=== PATIENT | male | born 1990 | race Caucasian/White ===

== ENCOUNTER 2016-11-01 19:08 | Emergency (ER) | payer OTHER ==
[~2016-11-01] VITALS: Ht 190.5 cm; Wt 71.9 kg
[2016-11-01] MEDS ORDERED: NORCO, ANEXSIA 5/325MG TABLET (HYDROcodone/ACETAMINOPHEN) PO ONE (20:15)
[2016-11-01 21:03] VITALS: BP 108/56
[2016-11-01] MEDS ORDERED: NORCO 5/325MG TABLET (BULK FOR ED) PO ONE (21:15)
--- NOTE | 2016-11-02 14:17 | REP ---
RIGHT HAND: Four views right hand performed. There is no acute fracture or dislocation. No intrinsic osseous pathology is seen. Possible old fracture is noted of the second metacarpal. IMPRESSION: No acute fracture or dislocation. Signed by Hal Gipson MD 11/02/2016 03:22 P
== END 2016-11-01 21:25 | disposition home or self-care (01) ==
LOC: M ED 19:08
DX: S60.211A Contusion of right wrist, initial encounter (principal); W23.1XXA Caught, crushed, jammed, or pinched between stationary objects, initial encounter; W01.0XXA Fall on same level from slipping, tripping and stumbling without subsequent striking against object, initial encounter; Y92.019 Unspecified place in single-family (private) house as the place of occurrence of the external cause; Y93.K1 Activity, walking an animal; Y99.8 Other external cause status; Z88.8 Allergy status to other drugs, medicaments and biological substances

== ENCOUNTER → 2017-11-28 | Outpatient (CLI) | payer OTHER | LOC: M OUTALCOH 07:57 | DX: F11.20 Opioid dependence, uncomplicated (principal); F14.20 Cocaine dependence, uncomplicated ==

== ENCOUNTER 2017-12-17 15:13 | Outpatient (RCR) | payer OTHER | END 2018-01-11 | LOC: M OUTALCOH 15:13 | DX: F14.20 Cocaine dependence, uncomplicated (principal); F11.20 Opioid dependence, uncomplicated ==

== ENCOUNTER 2018-01-14 15:00 | Outpatient (RCR) | payer OTHER | END 2018-02-11 | LOC: M OUTALCOH 01-21 15:00 | DX: F14.20 Cocaine dependence, uncomplicated (principal); F11.20 Opioid dependence, uncomplicated ==

== ENCOUNTER → 2018-04-01 | Outpatient (CLI) | payer OTHER ==
[2018-04-01 14:20] LABS: BASO % 0.4 % (0.0-1.0); EOS # 0.1 10^3/uL (0.0-0.50); HEMATOCRIT 46.8 % (42.0-52.0); HEMOGLOBIN 15.7 g/dl (13.5-17.5); LYMPH # 1.6 10^3/uL (1.5-6.5); LYMPH % 19.4 % (24.0-44.0); MEAN CORPUSCULAR HEMOGLOBIN 30.8 pg (27.0-33.0); MEAN CORPUSCULAR HGB CONC 33.5 g/dl (32.0-36.5); MEAN CORPUSCULAR VOLUME 91.8 fl (80.0-96.0); MONO # 0.6 10^3/uL (0.0-0.8); MONO % 7.3 % (0.0-5.0); NEUTROPHILS % 71.7 % (36.0-66.0); PLATELET COUNT, AUTOMATED 214 10^3/uL (150-450); WHITE BLOOD COUNT 8.4 10^3/uL (4.0-10.0)
[2018-04-01 14:39] LABS: ALBUMIN 4.6 GM/DL (3.2-5.2); ALT/SGPT 18 U/L (12-78); BILIRUBIN,TOTAL 0.5 MG/DL (0.2-1.0); BLOOD UREA NITROGEN 11 MG/DL (7-18); CALCIUM LEVEL 9.4 MG/DL (8.5-10.1); CARBON DIOXIDE LEVEL 29 MEQ/L (21-32); CHLORIDE LEVEL 102 MEQ/L (98-107); CREATININE FOR GFR 0.85 MG/DL (0.70-1.30); GLOMERULAR FILTRATION RATE > 60.0 (>60); GLUCOSE, FASTING 78 MG/DL (70-100); POTASSIUM SERUM 3.9 MEQ/L (3.5-5.1); SODIUM LEVEL 138 MEQ/L (136-145); TOTAL PROTEIN 8.2 GM/DL (6.4-8.2)
[2018-04-03 10:04] LABS: HEPATITIS B SURFACE ANTIBODY NEGATIVE (POSITIVE)
[2018-04-03 10:14] LABS: HEPATITIS B SURFACE ANTIGEN NEGATIVE (NEGATIVE)
== END ==
LOC: M LAB 13:15
PROVIDERS: ATTEND Physician Assistant Medical
DX: Z02.2 Encounter for examination for admission to residential institution (principal); B15.9 Hepatitis A without hepatic coma; B18.2 Chronic viral hepatitis C; B16.9 Acute hepatitis B without delta-agent and without hepatic coma

== ENCOUNTER → 2018-04-02 | Outpatient (REF) | payer OTHER ==
[2018-04-02 10:46] LABS: APPEARANCE, URINE CLEAR (CLEAR); BACTERIA, URINE AUTO NEGATIVE (NEGATIVE); BILIRUBIN, URINE AUTO NEGATIVE (NEGATIVE); BLOOD, URINE BLOOD NEGATIVE (NEGATIVE); COLOR, URINE YELLOW (YELLOW); GLUCOSE, URINE (UA) AUTO NEGATIVE (NEGATIVE); KETONE, URINE AUTO NEGATIVE (NEGATIVE); LEUKOCYTE ESTERASE, URINE AUTO TRACE (NEGATIVE); MUCUS, URINE SMALL (NEGATIVE); NITRITE, URINE AUTO NEGATIVE (NEGATIVE); PROTEIN, URINE AUTO NEGATIVE (NEGATIVE); RBC, URINE AUTO 1 /HPF (0-3); SPECIFIC GRAVITY URINE AUTO 1.009 (1.002-1.035); SQUAMOUS EPITHELIAL CELL UR AU 0 /HPF (0-6); UROBILINOGEN, URINE AUTO 0.2 mg/dL (0.0-2.0); WBC, URINE AUTO 10 /HPF (0-3)
[2018-04-13 14:11] LABS: HEPATITIS A IgG TOTAL Negative (Negative); HEPATITIS C QUANTITATION HCV Not Detected IU/mL (.)
== END ==
LOC: M LAB REF 09:51
PROVIDERS: ATTEND Physician Assistant Medical
DX: Z02.2 Encounter for examination for admission to residential institution (principal); B18.2 Chronic viral hepatitis C; B16.9 Acute hepatitis B without delta-agent and without hepatic coma; B15.9 Hepatitis A without hepatic coma

== ENCOUNTER 2018-04-21 18:26 | Emergency (ER) | payer OTHER ==
[~2018-04-21] VITALS: Ht 193 cm; Wt 79.7 kg
--- NOTE | 2018-04-21 19:36 | REP ---
Chest two views HISTORY: Chest pain Comparison: None The lungs are clear. The heart is normal in size. The pulmonary vasculature is normal in appearance. The bony structure is intact. IMPRESSION: No acute disease. Electronically Signed by Reinier Dupont MD 04/21/2018 07:27 P
[2018-04-21] MEDS ORDERED: KETOROLAC TROMETHAMINE 10 MG TAB PO ONE (19:45)
[2018-04-21 20:09] LABS: BASO # 0.1 10^3/uL (0.0-0.2); BASO % 0.7 % (0.0-1.0); EOS # 0.2 10^3/uL (0.0-0.50); EOS % 1.5 % (0.0-3.0); HEMATOCRIT 47.1 % (42.0-52.0); HEMOGLOBIN 16.2 g/dl (13.5-17.5); LYMPH # 2.5 10^3/uL (1.5-6.5); LYMPH % 21.2 % (24.0-44.0); MEAN CORPUSCULAR HGB CONC 34.4 g/dl (32.0-36.5); MEAN CORPUSCULAR VOLUME 90.1 fl (80.0-96.0); MONO # 0.8 10^3/uL (0.0-0.8); MONO % 7.2 % (0.0-5.0); NEUTROPHILS % 69.1 % (36.0-66.0); PLATELET COUNT, AUTOMATED 232 10^3/uL (150-450); RED BLOOD COUNT 5.23 10^6/uL (4.30-6.10); WHITE BLOOD COUNT 11.7 10^3/uL (4.0-10.0)
[2018-04-21 20:20] LABS: INR 0.97; PROTHROMBIN TIME 12.9 SECONDS (12.1-14.4)
[2018-04-21 20:21] LABS: PARTIAL THROMBOPLASTIN TIME 30.4 SECONDS (25.4-37.6)
[2018-04-21 20:24] LABS: ALBUMIN 4.8 GM/DL (3.2-5.2); ALT/SGPT 15 U/L (12-78); BILIRUBIN,DIRECT 0.1 MG/DL (0.0-0.2); BILIRUBIN,TOTAL 0.5 MG/DL (0.2-1.0); BLOOD UREA NITROGEN 14 MG/DL (7-18); C REACTIVE PROTEIN QUANTITATIV < 0.30 MG/DL (0.00-0.30); CALCIUM LEVEL 9.5 MG/DL (8.5-10.1); CARBON DIOXIDE LEVEL 28 MEQ/L (21-32); CHLORIDE LEVEL 102 MEQ/L (98-107); CK-MB VALUE MASS < 1.0 NG/ML (<3.6); CPK CREATINE PHOSPHOKINASE 100 U/L (39-308); D-DIMER QUANT 411.4 ng/ml (<500); GLOMERULAR FILTRATION RATE > 60.0 (>60); GLUCOSE, FASTING 81 MG/DL (70-100); POTASSIUM SERUM 4.2 MEQ/L (3.5-5.1); SODIUM LEVEL 135 MEQ/L (136-145); TOTAL PROTEIN 8.5 GM/DL (6.4-8.2); TROPONIN I < 0.02 NG/ML (< 0.10)
[2018-04-21] MEDS ORDERED: KETO10TAB PO (20:56)
[2018-04-21] MEDS ORDERED: CYCL10TA PO (20:56)
[2018-04-21 21:00] VITALS: BP 123/79
[2018-04-21] MEDS ORDERED: CYCLOBENZAPRINE 10 MG TAB PO ONE (21:00)
[2018-04-21 23:28] LABS: ERYTHROCYTE SEDIMENTATION RATE 2 mm/hr (0-15)
--- NOTE | 2018-04-22 13:24 | ECGEPIP ---
Stationary ECG Study [facility] - ED Test Date: 2018-04-21 Pat Name: SJ JARAMILLO Department: Room: - Gender: M [employer]er: : 1990 Requested By: MARIO GARCIA PA-C Order Number: [id number] Reading MD: Heladio Murguia Measurements Intervals [place] Rate: 71 P: 10 [place]: 133 QRS: 56 QRSD: 109 T: 95 QT: 355 QTc: 388 Interpretive Statements SINUS RHYTHM BENIGN EARLY REPOLARIZATION NO PRIORS FOR COMPARISON Electronically Signed On 04-22-2018 13:24:31 EST by Heladio Murguia
== END 2018-04-21 21:05 | disposition home or self-care (01) ==
LOC: M ED 18:26
DX: M94.0 Chondrocostal junction syndrome [Tietze] (principal); Z88.1 Allergy status to other antibiotic agents; F17.210 Nicotine dependence, cigarettes, uncomplicated

== ENCOUNTER → 2020-08-17 | Outpatient (CLI) | payer SELFPAY ==
[~2020-08-17] MED LIST: CYCL-707 PO; KETO10TAB PO
== END ==
LOC: M OUTALCOH 10:02
PROVIDERS: ATTEND Psychiatry & Neurology Psychiatry
DX: F11.20 Opioid dependence, uncomplicated (principal); F16.20 Hallucinogen dependence, uncomplicated

== ENCOUNTER 2020-09-08 08:45 | Outpatient (RCR) | payer SELFPAY | END 2020-09-11 | LOC: M OUTALCOH 08:45 | PROVIDERS: ATTEND Psychiatry & Neurology Psychiatry | DX: F11.20 Opioid dependence, uncomplicated (principal); F16.20 Hallucinogen dependence, uncomplicated ==

== ENCOUNTER 2020-09-20 15:51 | Outpatient (RCR) | payer MEDICAID, SELFPAY | END 2020-10-11 | LOC: M OUTALCOH 15:51 | PROVIDERS: ATTEND Psychiatry & Neurology Psychiatry | DX: F11.20 Opioid dependence, uncomplicated (principal); F16.20 Hallucinogen dependence, uncomplicated ==

== ENCOUNTER → 2021-03-27 | Outpatient (CLI) | payer MEDICAID, SELFPAY | LOC: M OUTALCOH 08:10 | PROVIDERS: ATTEND Psychiatry & Neurology Psychiatry | DX: F11.20 Opioid dependence, uncomplicated (principal) ==

== ENCOUNTER → 2021-05-01 | Outpatient (CLI) | payer MEDICAID | LOC: M OUTALCOH 09:27 | PROVIDERS: ATTEND Psychiatry & Neurology Psychiatry | DX: Z04.6 Encounter for general psychiatric examination, requested by authority (principal) ==

== ENCOUNTER 2021-05-07 14:50 | Outpatient (RCR) | payer MEDICAID | END 2021-05-14 | LOC: M OUTALCOH 14:50 | PROVIDERS: ATTEND Psychiatry & Neurology Psychiatry | DX: F11.20 Opioid dependence, uncomplicated (principal); F16.20 Hallucinogen dependence, uncomplicated; F13.10 Sedative, hypnotic or anxiolytic abuse, uncomplicated; F15.20 Other stimulant dependence, uncomplicated ==

== ENCOUNTER → 2021-09-13 | Outpatient (CLI) | payer MEDICAID | LOC: M OUTALCOH 09:36 | PROVIDERS: ATTEND Psychiatry & Neurology Psychiatry | DX: Z13.9 Encounter for screening, unspecified (principal) ==

== ENCOUNTER 2021-10-08 13:23 | Outpatient (RCR) | payer MEDICAID | END 2021-10-11 | LOC: M OUTALCOH 13:23 | PROVIDERS: ATTEND Psychiatry & Neurology Psychiatry | DX: F11.20 Opioid dependence, uncomplicated (principal); F16.20 Hallucinogen dependence, uncomplicated; F15.20 Other stimulant dependence, uncomplicated; F17.200 Nicotine dependence, unspecified, uncomplicated ==

== ENCOUNTER 2021-11-09 08:40 | Outpatient (RCR) | payer MEDICAID | END 2021-11-11 | LOC: M OUTALCOH 08:40 | PROVIDERS: ATTEND Psychiatry & Neurology Psychiatry | DX: F11.20 Opioid dependence, uncomplicated (principal); F16.20 Hallucinogen dependence, uncomplicated; F15.20 Other stimulant dependence, uncomplicated; F17.200 Nicotine dependence, unspecified, uncomplicated ==

== ENCOUNTER 2021-12-10 08:40 | Outpatient (RCR) | payer MEDICAID, OTHER | END 2021-12-12 | LOC: M OUTALCOH 08:40 | PROVIDERS: ATTEND Psychiatry & Neurology Psychiatry | DX: F11.20 Opioid dependence, uncomplicated (principal); F16.20 Hallucinogen dependence, uncomplicated; F15.20 Other stimulant dependence, uncomplicated; F17.200 Nicotine dependence, unspecified, uncomplicated ==

== ENCOUNTER 2024-02-04 21:40 | Emergency (ER) | payer OTHER, SELFPAY ==
[~2024-02-04] VITALS: Ht 182.9 cm; Wt 77.3 kg
[2024-02-05] MEDS ORDERED: NORCO, ANEXSIA 5/325MG TABLET (HYDROcodone/ACETAMINOPHEN) PO ONE (01:00)
[2024-02-05] MEDS ORDERED: HYDR-4571 PO (01:08)
[2024-02-05 01:24] VITALS: BP 126/82; TEMP 98; O2SAT 96
== END 2024-02-05 01:28 | disposition home or self-care (01) ==
LOC: M ED 21:40 → EDBD 21:40 → M ED 02-05 01:28
DX: S62.304A Unspecified fracture of fourth metacarpal bone, right hand, initial encounter for closed fracture (principal); S62.306A Unspecified fracture of fifth metacarpal bone, right hand, initial encounter for closed fracture; Y92.019 Unspecified place in single-family (private) house as the place of occurrence of the external cause; Y93.9 Activity, unspecified; Y99.9 Unspecified external cause status; F17.210 Nicotine dependence, cigarettes, uncomplicated; Z88.1 Allergy status to other antibiotic agents; Z79.899 Other long term (current) drug therapy

== ENCOUNTER 2024-02-19 10:53 | Day surgery (SDC) | payer OTHER ==
[~2024-02-19] VITALS: Ht 188 cm; Wt 75.7 kg
[~2024-02-19 10:53] MED LIST changes: +ACET-907 PO; +BUPR1FIL3 SL; +HYDR-4571 PO; +IBUP-1114 PO
[2024-02-19] MEDS ORDERED: propofoL 200 MG/20 ML VIAL As Ordered ONE (12:51)
[2024-02-19] MEDS ORDERED: ONDANSETRON 4MG 2ML VIAL As Ordered ONE (12:52)
[2024-02-19] MEDS ORDERED: LIDOCAINE 2% 100MG/5ML SDV (FOR ANES.) As Ordered ONE (12:52)
[2024-02-19] MEDS ORDERED: fentaNYL 100 MCG/2 ML INJECTION As Ordered ONE (12:53)
[2024-02-19] MEDS ORDERED: MIDAZOLAM INJ 2MG/2ML VIAL As Ordered ONE (12:54)
[2024-02-19] MEDS: ceFAZolin 2 GM/D5W 50 ML IV BAG As Ordered ONE (13:25)
[2024-02-19] MEDS ORDERED: ONDANSETRON 4MG 2ML VIAL IV PRN (14:15)
[2024-02-19] MEDS ORDERED: fentaNYL 100 MCG/2 ML INJECTION IV PRN (14:15)
[2024-02-19] MEDS ORDERED: OXYC1TAB23 PO (14:26)
[2024-02-19] MEDS: oxyCODONE 5MG TAB PO PRN (14:45)
[2024-02-19] MEDS: MORPHINE 2 MG/ML 1ML VIAL IV PRN (14:45)
[2024-02-19] MEDS: diphenhydrAMINE 50MG/ML VIAL IV PRN (15:21)
[2024-02-19] MEDS: fentaNYL 100 MCG/2 ML INJECTION IV PRN (15:24)
[2024-02-19 16:15] VITALS: BP 121/78; TEMP 97.8; O2SAT 100
== END 2024-02-19 16:26 | disposition home or self-care (01) ==
LOC: M SDC 10:53
PROVIDERS: ATTEND Orthopaedic Surgery
DX: S62.324A Displaced fracture of shaft of fourth metacarpal bone, right hand, initial encounter for closed fracture (principal); S62.316A Displaced fracture of base of fifth metacarpal bone, right hand, initial encounter for closed fracture; X58.XXXA Exposure to other specified factors, initial encounter; Y92.9 Unspecified place or not applicable; Y93.9 Activity, unspecified; Y99.8 Other external cause status; Z88.0 Allergy status to penicillin; Z87.891 Personal history of nicotine dependence; F19.11 Other psychoactive substance abuse, in remission
CPT/HCPCS: 26615; 76000; C1713; J0665; J0690; J1200; J2250; J2405; J3010

== ENCOUNTER → 2024-02-25 | Outpatient (CLI) | payer OTHER ==
[~2024-02-25] MED LIST changes: +OXYC1TAB23 PO
== END ==
LOC: M SOG 11:16
PROVIDERS: ATTEND Orthopaedic Surgery
DX: M25.541 Pain in joints of right hand (principal)

== ENCOUNTER → 2024-03-24 | Outpatient (CLI) | payer OTHER | LOC: M SOG 07:58 | PROVIDERS: ATTEND Physician Assistant | DX: Z47.89 Encounter for other orthopedic aftercare (principal) ==

== ENCOUNTER → 2024-05-17 | Outpatient (REF) | payer OTHER ==
[2024-05-17 17:01] LABS: APPEARANCE, URINE HAZY (CLEAR); BACTERIA, URINE AUTO NEGATIVE (NEGATIVE); BILIRUBIN, URINE AUTO NEGATIVE (NEGATIVE); BLOOD, URINE BLOOD NEGATIVE (NEGATIVE); COLOR, URINE AMBER (YELLOW); GLUCOSE, URINE (UA) AUTO NEGATIVE (NEGATIVE); KETONE, URINE AUTO NEGATIVE (NEGATIVE); LEUKOCYTE ESTERASE, URINE AUTO NEGATIVE (NEGATIVE); MUCUS, URINE LARGE (NEGATIVE); NITRITE, URINE AUTO NEGATIVE (NEGATIVE); PROTEIN, URINE AUTO 2+ mg/dL (NEGATIVE); RBC, URINE AUTO 3 /HPF (0-3); SPECIFIC GRAVITY URINE AUTO 1.028 (1.002-1.035); SQUAMOUS EPITHELIAL CELL UR AU 0 /HPF (0-6); WBC, URINE AUTO 3 /HPF (0-3)
[2024-05-17 18:13] LABS: Trichomonas vaginalis (AMP) NOT DETECTED (NEGATIVE)
[2024-05-17 18:36] LABS: GC DNA AMPLIFICATION NEGATIVE (NEGATIVE)
== END ==
LOC: M LAB REF 16:21
PROVIDERS: ATTEND Physician Assistant Medical
DX: Z11.3 Encounter for screening for infections with a predominantly sexual mode of transmission (principal)